=== PATIENT | male | born 1950 | race Caucasian/White ===

== ENCOUNTER 2016-12-27 20:10 | Emergency (ER) | payer OTHER ==
[2016-12-27 20:15] VITALS: BP 119/75; PULSE 64; RESP 18; TEMP 98.2; O2SAT 96
[2016-12-27] MEDS ORDERED: SODIUM CHLORIDE 0.9% FLUSH 10 ML FLUSH IVF PRN (20:15)
[2016-12-27] MEDS ORDERED: HYDR12.56 PO (20:21)
[2016-12-27] MEDS ORDERED: PRAV40TA2 PO (20:21)
[2016-12-27] MEDS ORDERED: METF500T PO (20:21)
[2016-12-27] MEDS ORDERED: LIOT5TAB3 PO (20:21)
[2016-12-27] MEDS ORDERED: LEVO-168 PO (20:21)
[2016-12-27] MEDS ORDERED: LISI30TA4 PO (20:21)
[2016-12-27] MEDS ORDERED: FENO145T2 PO (20:21)
--- NOTE | 2016-12-27 20:33 | PD ---
HPI . Chest pain Chief Complaint: Chest Pain Time Seen by Provider: 20:15 Travel History International Travel<30 days: No Contact w/Intl Traveler<30days: No Traveled to known affect area: No History of Present Illness HPI Patient presents with the chief complaint of chest pain. Onset was shortly prior to arrival. He states that he was just getting prepared to watch a race and BBQ some chicken when he had the onset of the chest pain. He describes it as a pressure-like sensation. It was associated with lightheadedness but no shortness of breath, diaphoresis or nausea. The pain lasted approximately 6-8 minutes and then spontaneously resolved. Patient denies any previous similar history. Pain is currently rated as 0. The patient is unaware of any exacerbating or relieving factors. PFSH Past Medical History High Cholesterol: Yes Diabetes: Yes Patient Takes Glucophage: Yes Diminished Hearing: No Hypertension: Yes Immunizations Current: No Thyroid Disease: Yes (HYPO) Tetanus Vaccination: Unknown Influenza Vaccination: Yes Social History Alcohol Use: Yes (OCC BEER) Tobacco Use: No (QUIT 20+ YRS) Substance Use: No Allergies-Medications (Allergen,Severity, Reaction): Coded Allergies: No Known Allergies (Unverified , 12/27/16) Reported Meds & Prescriptions Reported Meds & Active Scripts Active Reported Fenofibrate 145 Mg Tab 134 Mg PO DAILY Pravastatin 40 Mg Tab 40 Mg PO HS Metformin (Metformin HCl) 500 Mg Tab 500 Mg PO BIDPC With meals Levothyroxine (Levothyroxine Sodium) 112 Mcg Tab 112 Mcg PO DAILY Liothyronine (Liothyronine Sodium) 5 Mcg Tab 5 Mcg PO DAILY Hydrochlorothiazide 12.5 Mg Tab 12.5 Mg PO DAILY Lisinopril 30 Mg Tab 30 Mg PO DAILY Review of Systems Except as stated in HPI: all other systems reviewed are Neg Cardiovascular: Positive: Chest Pain or Discomfort Respiratory: No: Shortness of Breath Gastrointestinal: No: Nausea Physical Exam Narrative GENERAL: Patient is awake and alert and in no acute distress. SKIN: Warm and dry. HEAD: Atraumatic. Normocephalic. EYES: Pupils equal and round. Extraocular movements are intact. ENT: No nasal bleeding or discharge. Mucous membranes pink and moist. NECK: Trachea midline. Neck is supple. CARDIOVASCULAR: Regular rate and rhythm. Heart sounds are normal. RESPIRATORY: No accessory muscle use. Lungs are clear with full air movement throughout. GASTROINTESTINAL: Abdomen soft, non-tender, nondistended. MUSCULOSKELETAL: No obvious deformities. No edema. NEUROLOGICAL: Awake and alert. No obvious cranial nerve deficits. Motor grossly within normal limits. Normal speech. PSYCHIATRIC: Appropriate mood and affect; insight and judgment normal. Data Data Last Documented VS Vital Signs Date Time Temp Pulse Resp B/P Pulse Ox O2 Delivery O2 Flow Rate FiO2 12/27/16 20:18 65 18 96 Nasal Cannula 2 12/27/16 20:15 98.2 119/75 Orders Electrocardiogram (12/27/16 20:15) Basic Metabolic Panel (Bmp) (12/27/16 20:15) Ckmb (Isoenzyme) Profile (12/27/16 20:15) Complete Blood Count With Diff (12/27/16 20:15) Magnesium (Mg) (12/27/16 20:15) Prothrombin Time / Inr (Pt) (12/27/16 20:15) Act Partial Throm Time (Ptt) (12/27/16 20:15) Troponin I (12/27/16 20:15) Chest, Single Ap (12/27/16 20:15) Ecg Monitoring (12/27/16 20:15) Iv Access Insert/Monitor (12/27/16 20:15) Oximetry (12/27/16 20:15) Sodium Chloride 0.9% Flush (Ns Flush) (12/27/16 20:15) Labs Laboratory Tests Test 12/27/16 20:27 White Blood Count 8.9 TH/MM3 Red Blood Count 4.49 MIL/MM3 Hemoglobin 13.9 GM/DL Hematocrit 40.4 % Mean Corpuscular Volume 90.0 FL Mean Corpuscular Hemoglobin 30.9 PG Mean Corpuscular Hemoglobin 34.4 % Concent Red Cell Distribution Width 12.4 % Platelet Count 259 TH/MM3 Mean Platelet Volume 8.3 FL Neutrophils (%) (Auto) 67.4 % Lymphocytes (%) (Auto) 22.0 % Monocytes (%) (Auto) 6.9 % Eosinophils (%) (Auto) 2.4 % Basophils (%) (Auto) 1.3 % Neutrophils # (Auto) 6.0 TH/MM3 Lymphocytes # (Auto) 2.0 TH/MM3 Monocytes # (Auto) 0.6 TH/MM3 Eosinophils # (Auto) 0.2 TH/MM3 Basophils # (Auto) 0.1 TH/MM3 CBC Comment DIFF FINAL Differential Comment Prothrombin Time 10.6 SEC Prothromb Time International 1.0 RATIO Ratio Activated Partial 24.5 SEC Thromboplast Time Sodium Level 142 MEQ/L Potassium Level 3.6 MEQ/L Chloride Level 105 MEQ/L Carbon Dioxide Level 23.8 MEQ/L Anion Gap 13 MEQ/L Blood Urea Nitrogen 28 MG/DL Creatinine 1.60 MG/DL Estimat Glomerular Filtration 43 ML/MIN Rate Random Glucose 100 MG/DL Calcium Level 9.4 MG/DL Magnesium Level 2.3 MG/DL Total Creatine Kinase 87 U/L Troponin I LESS THAN 0.02 NG/ML Exceptions Acute Myocardial Infarction ASA Not Given on Arrival: Already taken by patient MDM Medical Decision Making Medical Screen Exam Complete: Yes Emergency Medical Condition: Yes Interpretation(s) EKG shows a sinus rhythm with a right bundle branch block. He does not have any old EKGs in our system for comparison. Differential Diagnosis Differential diagnosis of chest pain includes but is not limited to musculoskeletal pain, pulmonary embolism, acute coronary syndrome, pneumonia, pleurisy Narrative Course Patient presents for the evaluation of chest pain which occurred shortly prior to arrival, lasted 6-8 minutes and then spontaneously resolved. He does have risk factors including hypertension, diabetes and hyperlipidemia. Cardiac workup has been initiated. The patient had aspirin prior to arrival. CBC & BMP Diagram 12/27/16 20:27 Total CK is 87. Troponin is less than 0.02 Admission to the chest pain center was discussed with the patient. He prefers to follow up as an outpatient. I have instructed him to return here for chest pain that does not spontaneously resolve within 30 minutes. If he has to come back for his chest pain, he needs to come back compared to stay. Diagnosis Primary Impression: Chest pain Qualified Code: R07.9 - Chest pain, unspecified type Patient Instructions: Chest Pain (DC), General Instructions Additional Instructions: If he were chest pain comes back and does not spontaneously go away within 30 minutes, return here prepared to stay. Disposition: 01 DISCHARGE HOME Condition: Stable Shante Luo MD Dec 27, 2016 20:33
--- NOTE | 2016-12-27 20:38 | RADRPT ---
EXAM DATE/TIME: 12/27/2016 20:28 [facility] COMPARISON: No previous studies available for comparison. INDICATIONS : Chest pain. MEDICAL HISTORY : None. SURGICAL HISTORY : None. ENCOUNTER: Initial ACUITY: 1 day PAIN SCORE: 5/10 LOCATION: Bilateral chest FINDINGS: A single view of the chest demonstrates the lungs to be symmetrically aerated without evidence of mas s, infiltrate or effusion. There is mild atelectasis and/or scarring at the left lung base. The cardi omediastinal contours are unremarkable. Osseous structures are intact. CONCLUSION: 1. Mild scarring and/or atelectasis at the left lung base. 2. The study is otherwise unremarkable. Christian Moralez MD on December 27, 2016 at 20:35 Board Certified Radiologist. This report was verified electronically.
[2016-12-27 20:39] LABS: BASOPHIL # 0.1 TH/MM3 (0-0.2); BASOPHIL % 1.3 % (0.0-2.0); EOSINOPHIL # 0.2 TH/MM3 (0-0.4); EOSINOPHIL % 2.4 % (0.0-4.0); HEMATOCRIT 40.4 % (39.0-51.0); HEMO FLAGS DIFF FINAL; MEAN CORPUSCULAR HEMOGLOBIN 30.9 PG (27.0-34.0); MEAN CORPUSCULAR HGB CONC 34.4 % (32.0-36.0); MONO % 6.9 % (0.0-8.0); NEUT % 67.4 % (16.0-70.0); PLATELET COUNT 259 TH/MM3 (150-450); RED BLOOD COUNT 4.49 MIL/MM3 (4.50-5.90); RED CELL DISTRIBUTION WIDTH 12.4 % (11.6-17.2); WHITE BLOOD COUNT 8.9 TH/MM3 (4.0-11.0)
[2016-12-27 20:49] LABS: CHLORIDE 105 MEQ/L (98-107); POTASSIUM 3.6 MEQ/L (3.5-5.1); SODIUM (NA) 142 MEQ/L (136-145)
[2016-12-27 20:52] LABS: ANION GAP 13 MEQ/L (5-15); BICARBONATE 23.8 MEQ/L (21.0-32.0); BLOOD UREA NITROGEN 28 MG/DL (7-18); MAGNESIUM 2.3 MG/DL (1.5-2.5)
[2016-12-27 20:55] LABS: APTT (PATIENT) 24.5 SEC (24.3-30.1); GLOMERULAR FILTRATION RATE 43 ML/MIN (>89); PROTHROMBIN TIME - PATIENT 10.6 SEC (9.8-11.6)
[2016-12-27 20:57] VITALS: BP 117/72; PULSE 64; RESP 17; O2SAT 97
[2016-12-27 21:01] LABS: CREATINE KINASE 87 U/L (39-308)
[2016-12-27 21:26] VITALS: BP 122/76; PULSE 61; RESP 18; O2SAT 96
--- NOTE | 2016-12-28 06:59 | EKG ---
Date Performed: 12/27/2016 Time Performed: 20:07:06 PTAGE: 66 years EKG: Sinus rhythm RIGHT BUNDLE BRANCH BLOCK ABNORMAL ECG INTERPRETATION BASED ON A DEFAULT AGE OF 40 YEARS NO PREVIOUS TRACING DOCTOR: He Espitia Interpretating Date/Time 12/28/2016 06:58:55
== END 2016-12-27 21:45 | disposition home or self-care (01) ==
LOC: PHED 20:10
DX: R07.9 Chest pain, unspecified (principal); E78.00 Pure hypercholesterolemia, unspecified; I10 Essential (primary) hypertension; E11.9 Type 2 diabetes mellitus without complications; E03.9 Hypothyroidism, unspecified; Z87.891 Personal history of nicotine dependence; I45.10 Unspecified right bundle-branch block
CPT/HCPCS: 71010; 80048; 82550; 83735; 84484; 85025; 85610; 85730; 93005; 99285